=== PATIENT | female | born 1990 | race Caucasian/White ===

== ENCOUNTER 2016-07-28 14:39 | Emergency (ER) | payer OTHER ==
[2016-07-28 14:42] VITALS: BP 129/78; PULSE 100; TEMP 98.4; BMI 27.4
--- NOTE | 2016-07-28 16:45 | PDOC ---
History of Present Illness - General Chief Complaint: Ear Problem Stated Complaint: EAR PAIN Time Seen by Provider: 07/28/16 16:36 History Source: Patient Exam Limitations: No Limitations - History of Present Illness Initial Comments: 07/28/16 16:41 25 yr female c/o 3 days right earache getting worse with sore throat. no fever or chills. Severity: mild Past History - Past Medical History Allergies/Adverse Reactions: Allergies Allergy/AdvReac Type Severity Reaction Status Date / Time No Known Allergies Allergy Verified 07/28/16 14:42 Home Medications: Ambulatory Orders Amoxicillin - [Amoxicillin 500mg Capsule -] 500 mg PO BID #20 capsule 07/28/16 - Psycho/Social/Smoking Cessation Hx Suicidal Ideation: No Smoking History: Never smoked Information on smoking cessation initiated: No Review of Systems - Review of Systems Able to Perform ROS?: Yes Is the patient limited Spanish proficient: No Constitutional: No: Symptoms Reported HEENTM: Yes: See HPI Respiratory: No: Symptoms reported Cardiac (ROS): No: Symptoms Reported ABD/GI: No: Symptoms Reported *Physical Exam - Vital Signs Last Vital Signs Temp Pulse Resp BP Pulse Ox 98.4 F 100 H 18 129/78 97 07/28/16 14:40 07/28/16 14:40 07/28/16 14:40 07/28/16 14:40 07/28/16 14:40 - Physical Exam General Appearance: Yes: Nourished, Appropriately Dressed HEENT: positive: EOMI, AMADOU, Normal ENT Inspection, Pharynx Normal, TM Bulging, TM Dull, TM Erythema (right ear ) Neck: positive: Supple Respiratory/Chest: positive: Lungs Clear, Normal Breath Sounds Cardiovascular: positive: Regular Rhythm, Regular Rate Gastrointestinal/Abdominal: positive: Normal Bowel Sounds, Soft Musculoskeletal: positive: Normal Inspection Extremity: positive: Normal Capillary Refill, Normal Inspection, Normal Range of Motion Integumentary: positive: Normal Color, Dry, Warm Neurologic: positive: entry specialist II-XII NML intact, Fully Oriented, Alert, Normal Mood/ Affect, Normal Response, Motor Strength 5/5 Medical Decision Making - Medical Decision Making 07/28/16 16:42 cc: right ear ache 3 days not relieved with OTC meds no drainage *DC/Admit/Observation/Transfer Diagnosis at time of Disposition: Otitis media Qualifiers: Otitis media type: suppurative Laterality: right Chronicity: acute Recurrence: not specified as recurrent Spontaneous tympanic membrane rupture: without spontaneous rupture Qualified Code(s): H66.001 - Acute suppurative otitis media without spontaneous rupture of ear drum, right ear - Discharge Dispostion Disposition: HOME Condition at time of disposition: Good - Prescriptions Prescriptions: Amoxicillin - [Amoxicillin 500mg Capsule -] 500 mg PO BID #20 capsule - Referrals Referrals: Joshua Petty MD [Staff Physician] - - Patient Instructions Additional Instructions: use the amoxicillin as directed no Qtips in the ear no water in the ear follow with the ENT for follow up care next week, call Saturday to make appointment continue to take motrin 600-800mg every 6hrs for pain warm moist compresses to the outside of the ear and jaw return if any worsening symptoms
== END 2016-07-28 16:49 | disposition home or self-care (01) ==
LOC: JERFT 14:39
DX: H66.001 Acute suppurative otitis media without spontaneous rupture of ear drum, right ear (principal)
CPT/HCPCS: 99281-25